=== PATIENT | male | born 1990 | race Caucasian/White ===

== ENCOUNTER 2019-08-30 12:17 | Outpatient (CLI) | payer OTHER, SELFPAY ==
--- NOTE | ~2019-08-30 | XR_ITS ---
EXAMINATION: XR knee LT 3V DATE: 08/30/2019 12:35 INDICATION: Left knee pain. TECHNIQUE: 3 views of left knee were obtained. COMPARISON: None. FINDINGS: Bone alignment is normal. No fracture. There is mild osteoarthritis of lateral and patellof emoral compartments. No knee joint effusion. IMPRESSION: 1. Mild left knee osteoarthritis. Reviewed, dictated and finalized at location A. D ARTILLERY CREWMEMBER
== END 2019-08-30 12:18 ==
PROVIDERS: PCP Family Medicine; Visit Provider Family Medicine
DX: M17.12 Unilateral primary osteoarthritis, left knee (principal)
CPT/HCPCS: 73562

== ENCOUNTER → 2021-10-30 08:27 | Outpatient (CLI) | payer OTHER, MEDICAID, SELFPAY ==
--- NOTE | ~2021-10-30 | US_ITS ---
EXAMINATION: US abdomen complete DATE: 10/30/2021 08:55 INDICATION: Abdominal distention TECHNIQUE: Multiple grayscale and Doppler ultrasound images of the abdomen were obtained. COMPARISON: None available FINDINGS: The head and body of the pancreas are normal. The pancreatic tail is obscured by bowel gas. The liver is normal with normal echogenicity and echotexture. No surface nodularity. Normal hepatope devin flow in the main portal vein. The gallbladder is normal with no abnormal wall thickening, pericho lecystic fluid or stones. The normal common bile duct measures 4 mm. There was no sonographic Mejia sign. The visualized portions of the aorta and inferior vena cava are normal. The right kidney measures 12.5 x 4.9 x 6 cm. The left kidney measures 11.7 x 5.6 x 4.8 cm. The kidney s demonstrate normal parenchymal echogenicity. There is no hydronephrosis. The spleen is normal in ap pearance and measures 12 cm. IMPRESSION: 1. No sonographic correlate for the patient's symptoms. Reviewed, dictated and finalized at location A.
== END ==
PROVIDERS: PCP Family Medicine; Visit Provider Family Medicine
DX: R14.0 Abdominal distension (gaseous) (principal)
CPT/HCPCS: 76700

== ENCOUNTER 2024-07-21 09:53 | Emergency (ER) | payer OTHER, SELFPAY ==
[2024-07-21 09:54] VITALS: BP 152/93; PULSE 72; RESP 18; TEMP 36.1; O2SAT 94
--- NOTE | 2024-07-21 10:08 | ED.DENTAL ---
HPI - Dental/Oral General Chief complaint: Dental/Oral Stated complaint: TOOTHACHE Time Seen by Provider: 07/21/24 10:08 History of Present Illness HPI Narrative: error Related Data Allergies Allergy/AdvReac Type Severity Reaction Status Date / Time No Known Allergies Allergy Verified 07/21/24 09:59 [facility] Past Medical History Medical History Erectile dysfunction BMI 38.0-38.9,adult Family History Family History Father Hypertension Family history of coronary artery disease Grandparent Acute myocardial infarction Other Family history of lung cancer Social History Social History Smoking status: Never smoker Alcohol intake: current Alcohol use details: special occasions, once a month maybe Substance use: never Substance use type: does not use Living arrangements: with family Occupation/Education: occupation Gender identity (if verbalized by the patient): Male Sexual Orientation (if Verbalized by the Patient): Straight or Heterosexual Course Vital Signs Vital signs: Vital Signs Temperature 36.1 C L 07/21/24 09:54 Pulse Rate 72 07/21/24 09:54 Respiratory Rate 18 07/21/24 09:54 Blood Pressure 152/93 H 07/21/24 09:54 Pulse Oximetry 94 07/21/24 09:54 Oxygen Delivery Room Air 07/21/24 09:54 Temperature 36.1 C L 07/21/24 09:54 Pulse Rate 72 07/21/24 09:54 Respiratory Rate 18 07/21/24 09:54 Blood Pressure 152/93 H 07/21/24 09:54 Pulse Oximetry 94 07/21/24 09:54 Oxygen Delivery Room Air 07/21/24 09:54 Discharge Plan Discharge Clinical Impression: Maxilla pain Patient Disposition: Home, Self-Care Condition: Stable Instructions: Toothache (ED) Additional Instructions: Please see a dentist as soon as possible. Stop amoxicillin. Start new clindamycin. Patient Language: Libyan Prescriptions: New clindamycin HCl 300 mg capsule 300 mg PO TID 10 Days Qty: 30 0RF tramadol 50 mg tablet 50 mg PO Q8H PRN (Reason: pain) Qty: 20 0RF Rx Instructions: 1-2 tabs per dose Follow-up/Referrals: UNKNOWN,DOCTOR [Primary Care Provider] - Time of Disposition: 10:19
--- NOTE | 2024-07-21 10:20 | ED.DENTAL ---
HPI - Dental/Oral General Chief complaint: Dental/Oral Stated complaint: TOOTHACHE Time Seen by Provider: 07/21/24 10:08 Source: patient Mode of arrival: ambulatory Limitations: no limitations History of Present Illness HPI Narrative: Patient is a 34-year-old male with a right upper jaw pain and poor dentition issues. He has a fractured tooth with decay. He is working on getting into a dentist as soon as possible. MD Complaint: tooth injury Location: Tooth # ( 3) Onset (ago): week(s) (1) Duration: constant Severity: moderate Severity scale (1-10): 8 Relieving factors: nothing Exacerbating factors: chewing, cold, heat and drinking fluids Context: trauma (mechanism) ( eating foods) Associated symptoms: gum swelling Treatment prior to arrival: other ( patient on amoxicillin) Related Data Allergies Allergy/AdvReac Type Severity Reaction Status Date / Time No Known Allergies Allergy Verified 07/21/24 09:59 Review of Systems Review of Systems: All systems reviewed & are unremarkable except as noted in HPI and below Constitutional: Constitutional: Reports no additional constitutional complaints Eyes: Eyes: Reports no additional eye complaints ENT: Reports system reviewed and no additional complaints, except as documented Cardiovascular: Cardiovascular: Reports no additional cardiovascular complaints Respiratory: Respiratory: Reports no additional respiratory complaints Gastrointestinal: Gastrointestinal: Reports no additional gastrointestinal complaints Genitourinary: Genitourinary: Reports no additional male genitourinary complaints Musculoskeletal: Musculoskeletal: Reports no additional musculoskeletal complaints Integumentary/Breasts: Skin/Breast: Reports system reviewed and no additional complaints, except as docu Neurologic: Reports system reviewed and no additional complaints, except as documented Psychiatric: Psychiatric: Reports no additional psychiatric complaints Endocrine: Endocrine: Reports no additional endocrine complaints Hematologic/Lymphatic: Hematologic/Lymphatic: Reports no additional hematologic/lymphatic complaints Allergic/Immunologic: Allergic/Immunologic: Reports no additional allergic/immunologic complaints COUNT INCLUDES [facility] Past Medical History Medical History Erectile dysfunction BMI 38.0-38.9,adult Family History Family History Father Hypertension Family history of coronary artery disease Grandparent Acute myocardial infarction Other Family history of lung cancer Social History Social History Smoking status: Never smoker Alcohol intake: current Alcohol use details: special occasions, once a month maybe Substance use: never Substance use type: does not use Living arrangements: with family Occupation/Education: occupation Gender identity (if verbalized by the patient): Male Sexual Orientation (if Verbalized by the Patient): Straight or Heterosexual Exam Const: General: healthy appearing Nutritional Appearance: well nourished Orientation/consciousness: patient oriented x3 HENMT: Head: normal to inspection Ears: external ears normal Face/Nose/Sinus: Normal external nose present Other: Tooth 3 has a black decay and 50% fracture down to the root with localized swelling of the right cheek without localized abscess Eyes: Conjunctivae: conjunctivae normal Pupils: Equal, round and reactive pupils present EOM: EOMs intact bilaterally Neck: Neck: normal visual inspection Chest: Chest palpation & inspection: normal inspection of the chest Resp: Effort & Inspection: normal respiratory effort and not labored Auscultation: clear to auscultation bilaterally and no crackles Cardio: Rate: regular rate Rhythm: regular rhythm Heart sounds: no murmurs GI: Inspection: non-distended GI Palp: Yes Soft to palpation and No Tenderness to palpation present (GI) Auscultation: normal bowel sounds : General: Yes bladder normal to palpation Back/Spine/Pelvis: Back: no CVA tenderness Skin: General skin exam: normal color Rashes: no rashes Wounds: no wounds Neuro: General: patient oriented x3 Cranial nerves: Yes Nystagmus not present Speech: normal speech Extrem: General: normal to inspection Psych: Mental Status: mental status grossly normal Affect: normal affect Attitude: cooperative Course Vital Signs Vital signs: Vital Signs Temperature 36.1 C L 07/21/24 09:54 Pulse Rate 72 07/21/24 09:54 Respiratory Rate 18 07/21/24 09:54 Blood Pressure 152/93 H 07/21/24 09:54 Pulse Oximetry 94 07/21/24 09:54 Oxygen Delivery Room Air 07/21/24 09:54 Temperature 36.1 C L 07/21/24 09:54 Pulse Rate 72 07/21/24 09:54 Respiratory Rate 18 07/21/24 09:54 Blood Pressure 152/93 H 07/21/24 09:54 Pulse Oximetry 94 07/21/24 09:54 Oxygen Delivery Room Air 07/21/24 09:54 MDM - Dental/Oral MDM Narrative Medical decision making narrative: patient is a 34-year-old male with a right face tooth 3 infection. We will changes amoxicillin to clindamycin and give him Ultram. He is to see a dentist as soon as possible. Discharge Plan Discharge Clinical Impression: Maxilla pain Patient Disposition: Home, Self-Care Condition: Stable Instructions: Toothache (ED) Additional Instructions: Please see a dentist as soon as possible. Stop amoxicillin. Start new clindamycin. Patient Language: Estonian Prescriptions: New clindamycin HCl 300 mg capsule 300 mg PO TID 10 Days Qty: 30 0RF tramadol 50 mg tablet 50 mg PO Q8H PRN (Reason: pain) Qty: 20 0RF Rx Instructions: 1-2 tabs per dose Follow-up/Referrals: UNKNOWN,DOCTOR [Primary Care Provider] - Time of Disposition: 10:19
[2024-07-21] MEDS: KETOROLAC (*BKC) 60 MG/2 ML VIAL IM (10:23)
== END 2024-07-21 10:42 | disposition home or self-care (01) ==
PROVIDERS: Emergency Provider Emergency Medicine
DX: R68.84 Jaw pain (principal)
CPT/HCPCS: 96372; 99283; J1885

== ENCOUNTER 2024-10-21 10:06 | Emergency (ER) | payer OTHER, SELFPAY ==
--- NOTE | ~2024-10-21 | XR_ITS ---
EXAMINATION: XR foot RT min 3V DATE: 10/21/2024 10:17 INDICATION: Gout presenting with pain through the medial right foot TECHNIQUE: Dorsoplantar, two oblique and lateral views of the right foot were obtained. COMPARISON: None. FINDINGS: Bone alignment is normal. No fracture. Mild polyarticular osteoarthritis at multiple joints in the ri t mid and forefoot. Moderate-sized Achilles and plantar calcaneal spurs. No erosions identified. Th ere is mild soft tissue swelling at the medial aspect of the midfoot. IMPRESSION: 1. Mild polyarticular osteoarthritis and moderate sized calcaneal enthesophytes. No erosions or acute osseous abnormality. Reviewed, dictated and finalized at location A. IMPRESSION: 1. Mild polyarticular osteoarthritis and moderate sized calcaneal enthesophytes . No erosions or acute osseous abnormality.
[2024-10-21 10:14] VITALS: BP 156/94; PULSE 87; RESP 16; TEMP 36.7; O2SAT 97
--- NOTE | 2024-10-21 10:17 | ED_ITS ---
HPI - Extremity Problem General Chief complaint: Extremity Problem,Nontraumatic Stated complaint: Foot Pain Time Seen by Provider: 10/21/24 10:07 Source: patient Mode of arrival: ambulatory Limitations: no limitations History of Present Illness HPI Narrative: patient is a 34-year-old male with a right foot pain overnight and this morning. He has a history of gout on the left foot. This appears to be the same pain and situation as prior gout. He was on allopurinol in the past. He has not seen a doctor in some time. MD Complaint: extremity pain, extremity swelling, joint swelling and joint paint Onset (ago): day(s) ( One) Pain Consistency: constant Location: right, lower extremity and other ( foot) Severity scale (1-10): 5 Quality: sharp Radiation: none Relieving factors: immobilization and elevation Exacerbating factors: range of motion, weight bearing, walking, exertion and palpation Associated symptoms: denies other symptoms Context: history of gout Related Data Allergies Allergy/AdvReac Type Severity Reaction Status Date / Time No Known Allergies Allergy Verified 10/03/24 07:37 Review of Systems Review of Systems: All systems reviewed & are unremarkable except as noted in HPI and below Constitutional: Constitutional: Reports no additional constitutional complaints Eyes: Eyes: Reports no additional eye complaints ENT: Reports system reviewed and no additional complaints, except as documented Cardiovascular: Cardiovascular: Reports no additional cardiovascular complaints Respiratory: Respiratory: Reports no additional respiratory complaints Gastrointestinal: Gastrointestinal: Reports no additional gastrointestinal complaints Genitourinary: Genitourinary: Reports no additional male genitourinary complaints Musculoskeletal: Musculoskeletal: Reports no additional musculoskeletal complaints Integumentary/Breasts: Skin/Breast: Reports system reviewed and no additional complaints, except as docu Neurologic: Reports system reviewed and no additional complaints, except as documented Psychiatric: Psychiatric: Reports no additional psychiatric complaints Endocrine: Endocrine: Reports no additional endocrine complaints Hematologic/Lymphatic: Hematologic/Lymphatic: Reports no additional hematologic/lymphatic complaints Allergic/Immunologic: Allergic/Immunologic: Reports no additional allergic/immunologic complaints [facility] Past Medical History Medical History Erectile dysfunction BMI 38.0-38.9,adult Family History Family History Father Hypertension Family history of coronary artery disease Grandparent Acute myocardial infarction Other Family history of lung cancer Social History Social History Smoking status: Never smoker Alcohol intake: current Alcohol use details: special occasions, once a month maybe Substance use: never Substance use type: does not use Living arrangements: with family Occupation/Education: occupation Gender identity (if verbalized by the patient): Male Sexual Orientation (if Verbalized by the Patient): Straight or Heterosexual Exam Const: General: healthy appearing Nutritional Appearance: well nourished Orientation/consciousness: patient oriented x3 HENMT: Head: normal to inspection Ears: external ears normal Face/Nose/Sinus: Normal external nose present Eyes: Conjunctivae: conjunctivae normal Pupils: Equal, round and reactive pupils present EOM: EOMs intact bilaterally Neck: Neck: normal visual inspection Chest: Chest palpation & inspection: normal inspection of the chest Resp: Effort & Inspection: normal respiratory effort and not labored Auscultation: clear to auscultation bilaterally and no crackles Cardio: Rate: regular rate Rhythm: regular rhythm Heart sounds: no murmurs GI: Inspection: non-distended GI Palp: Yes Soft to palpation and No Tenderness to palpation present (GI) Auscultation: normal bowel sounds : General: Yes bladder normal to palpation Back/Spine/Pelvis: Back: no CVA tenderness Skin: General skin exam: normal color Rashes: no rashes Wounds: no wounds Neuro: General: patient oriented x3 Cranial nerves: Yes Nystagmus not present Speech: normal speech Extrem: General: abnormal to inspection Other: right foot top is slightly red and more so swollen and tender to palpation midfoot; neurovascularly intact distally Psych: Mental Status: mental status grossly normal Affect: normal affect Attitude: cooperative Course Vital Signs Vital signs: Vital Signs Temperature 36.7 C 10/21/24 10:14 Pulse Rate 87 10/21/24 10:14 Respiratory Rate 16 10/21/24 10:14 Blood Pressure 156/94 H 10/21/24 10:14 Pulse Oximetry 97 10/21/24 10:14 Oxygen Delivery Room Air 10/21/24 10:14 Temperature 36.7 C 10/21/24 10:14 Pulse Rate 87 10/21/24 10:14 Respiratory Rate 16 10/21/24 10:14 Blood Pressure 156/94 H 10/21/24 10:14 Pulse Oximetry 97 10/21/24 10:14 Oxygen Delivery Room Air 10/21/24 10:14 MDM - Extremity (Nontraumatic) MDM Narrative Medical decision making narrative: patient is a 34-year-old male with right foot pain which is similar to prior gout in the left foot. We will start with an x-ray. Toradol. Imaging Data Attestation: I personally reviewed and interpreted this imaging study as follows: Radiologist's impression: X-ray right foot shows IMPRESSION: 1. Mild polyarticular osteoarthritis and moderate sized calcaneal enthesophytes. No erosions or acute osseous abnormality. Discharge Plan Discharge Clinical Impression: Gout attack Qualifiers: Gout site: foot Gout etiology: unspecified cause Laterality: right Qualified Code(s): M10.9 - Gout, unspecified Patient Disposition: Home, Self-Care Condition: Stable Instructions: Gout (ED) Patient Language: Yakut Prescriptions: New prednisone 20 mg tablet 40 mg PO DAILY 3 Days Qty: 6 0RF ibuprofen 800 mg tablet 800 mg PO TID PRN (Reason: pain) Qty: 30 0RF colchicine 0.6 mg tablet 1.2 mg PO ONCE Qty: 7 0RF Rx Instructions: then 0.6mg daily x5 days No Action tramadol 50 mg tablet 50 mg PO Q8H PRN (Reason: pain) Qty: 20 0RF Rx Instructions: 1-2 tabs per dose prednisone 10 mg tablet 30 mg PO DAILY Qty: 15 0RF allopurinol 100 mg tablet 100 mg PO DAILY Qty: 90 0RF Follow-up/Referrals: Prem Fry MD [Primary Care Provider] - Time of Disposition: 10:52
[2024-10-21] MEDS: KETOROLAC (*BKC) 60 MG/2 ML VIAL IM (10:26)
--- OUTSIDE RECORDS SUMMARY | 2024-10-21 10:30 | XMS_ITS | Referral Summary ---
Author Organization [facility] Building [address] Address [address] [place] [address] Care Team Providers Care Mastercam Programmer Name Role Phone No, Physician Primary Care Provider [phone] Allergies No known active allergies Medications HYDROcodone-acetam inophen (NORCO) 5-325 mg per tabletIndications: Pain 0 01/21/2018 Active Active Problems Problem Noted Date Diagnosed Date Furuncle of abdominal wall 09/21/2009 Social History Tobacco Use Types Packs/Day Years Used Date Smoking Tobacco: Never Smokeless Tobacco: Never Alcohol Use Standard Drinks/Week Comments No 0 (1 standard drink = 0.6 oz pur e alcohol) Personal Safety Answer Date Recorded Getting School Help Needed Not on file 10/01 Sex and Gender Information Value Date Recorded Sex Assigned at Not on file 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
--- OUTSIDE RECORDS SUMMARY | 2024-10-21 10:30 | XMS_ITS | Clinical Summary ---
Author Organization [facility] Medical Office Building [address] Address [address] [place] [address] Care Team Providers Care Front Clerk Name Role Phone No, Physician Primary Care Provider [phone] Allergies No known active allergies Medications HYDROcodone-acetam inophen (NORCO) 5-325 mg per tabletIndications: Pain 0 01/21/2018 Active Active Problems Problem Noted Date Diagnosed Date Furuncle of abdominal wall 09/21/2009 Family History Medical History Relation Name Comments No Known Problems Father No Known Problems Mother Relation Name Status Comments Father Mother Social History Tobacco Use Types Packs/Day Years Used Date Smoking Tobacco: Never Smokeless Tobacco: Never Alcohol Use Standard Drinks/Week Comments No 0 (1 standard drink = 0.6 oz pur e alcohol) Personal Safety Answer Date Recorded Getting School Help Needed Not on file 10/01 Sex and Gender Information Value Date Recorded Sex Assigned at Not on file 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
--- OUTSIDE RECORDS SUMMARY | 2024-10-21 10:30 | XMS_ITS | Clinical Summary ---
Author Organization [facility] Address [address] [place] [address] Phone Care Team Providers Care Robotic Machine Operator Name Role Phone Provider, None Primary Care Provider Unavailabl e Allergies No known active allergies Medications Allopurinol (ZYLOPRIM PO) Take by mouth. Active orphenadrine (NORFLEX) 100 MG TABLET SR 12 HR Take 1 Tablet by mouth 2 times daily as needed for Muscle spasms (lwft wrist pain). 14 Tablet 11/01/2021 Active HYDROcodone-millie taminophen (NORCO) 5-325 MG TabletIndicatio ns:Acute pain of left wrist,Fall, initial encounter Take 1 Tablet by mouth every 6 hours as needed for Moderate or more severe pain. 12 Tablet 11/01/2021 Active Immunizations Immunization Administration Dates Next Due TDAP Vaccine 03/07/2020 Social History Tobacco Use Types Packs/Day Years Used Date Smoking Tobacco: Never Smokeless Tobacco: Never Alcohol Use Standard Drinks/Week Comments No 0 (1 standard drink = 0.6 oz pur e alcohol) Sex and Gender Information Value Date Recorded Sex Assigned at Not on file Legal Sex Male 11:32 PM CDT Gender Identity Not on file Sexual Orientation Not on file Last Filed Vital Signs Vital Sign Reading Time Taken Comments Blood Pressure 139/78 11/01/2021 11:02 PM CDT Pulse 79 11/01/2021 11:02 PM CDT Temperature 36.9 C (98.4 F) 11/01/2021 8:47 PM CDT Respiratory Rate 17 11/01/2021 11:02 PM CDT Oxygen Saturation 99% 11/01/2021 11:02 PM CDT Inhaled Oxygen Concentration - - Weight 122.5 kg (270 lb) 11/01/2021 8:46 PM CDT Height 182.9 cm (6') 11/01/2021 8:46 PM CDT Body Mass Index 36.62 11/01/2021 8:46 PM CDT Plan of Treatment Health Maintenance Due Date Last Done Comments Hepatitis C Virus (HCV) Screening 1989 Influenza Immunization (#1) 2024 SARS-COV-2 Immunization ( season) 2024 Respiratory Syncytial Virus (RSV) Immunization (Adult) (1 - 1-dose 75+ series) 2064 Hepatitis B Immunization Completed 997, 11/18/1996, 07/05/1996 DTaP/Tdap/Td Immunization Discontinued 2019, 09/19/2005, 02/06/2004, Additional history exists Meningococcal Immunization (ACWY) Aged Out No longer eligible based on patient's age to complete this topic Pneumococcal Immunization Combined Aged Out No longer eligible based on patient's age to complete this topic Rotavirus Immunization Aged Out No lo nger eligible based on patient's age to complete this topic Insurance MEDICAID [place] Care Teams Robotic Machine Operator Relationship Specialty Start Date End Date Provider, None [place] PCP - General 1/18/17
--- OUTSIDE RECORDS SUMMARY | 2024-10-21 11:20 | XMS_ITS | Referral Summary ---
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
--- OUTSIDE RECORDS SUMMARY | 2024-10-21 11:20 | XMS_ITS | Clinical Summary ---
Author Organization 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
--- OUTSIDE RECORDS SUMMARY | 2024-10-21 11:20 | XMS_ITS | Clinical Summary ---
Author Organization [facility] Address [address] [place] [address] Phone Care Team Providers Care Residential Gas Heat Technician Name Role Phone Provider, None Primary Care [...] this topic Insurance [place]ICAID [place] Care Teams Residential Gas Heat Technician Relationship Specialty Start Date End Date Provider, None [place] PCP - General 1/18/17
== END 2024-10-21 11:04 | disposition home or self-care (01) ==
PROVIDERS: Emergency Provider Emergency Medicine; PCP Family Medicine
DX: M10.9 Gout, unspecified (principal)
CPT/HCPCS: 73630; 96372; 99283; J1885

== ENCOUNTER 2025-05-09 18:33 | Emergency (ER) | payer OTHER, MEDICAID, SELFPAY ==
[2025-05-09 18:40] VITALS: BP 155/92; PULSE 71; RESP 18; TEMP 36.6; O2SAT 100
[2025-05-09] MEDS: DACRIOSE EYE IRRIGATION 118 ML BOTTLE RIGHT EYE (18:46)
[2025-05-09] MEDS: FLUORESCEIN SOD 1 MG/STRIP RIGHT EYE (18:47)
[2025-05-09] MEDS: TETRACAINE HCL 0.5% OPHTH SOLN 4 ML BTL RIGHT EYE (18:47)
--- NOTE | 2025-05-09 19:17 | ED.GENADULT ---
HPI - General Adult General Chief complaint: Eye Problems Stated complaint: Right eye Source: patient Mode of arrival: ambulatory Limitations: no limitations History of Present Illness HPI narrative: Patient presents for evaluation of right eye irritation. Symptom onset this afternoon. He indicates he was working on a some framing and a piece of plastic from a nail gun hit him in the right side of the face just below the eye. He states he rubbed the area and shortly thereafter noted irritation of the eye. He has associated redness, sensation of foreign body in the eye, tearing, photophobia and blurred vision. He does not were glasses or contacts. He is not diabetic. He is up-to-date on tetanus. Denies any pain in the eye., Related Data Allergies Allergy/AdvReac Type Severity Reaction Status Date / Time No Known Allergies Allergy Verified 05/09/25 18:39 Review of Systems Review of Systems: CONSTITUTIONAL: Denies fever, chills, or sweats. EYES: Reports right eye irritation, redness, tearing, blurred vision, photophobia. Denies pain in the right eye and other visual disturbance. ENT: Denies rhinorrhea, congestion, sore throat, or otalgia. CARDIOVASCULAR: Denies chest pain, palpitations, or edema. RESPIRATORY: Denies cough or dyspnea. GASTROINTESTINAL: Denies abdominal pain, nausea, vomiting, or diarrhea. GENITOURINARY: Denies dysuria or hematuria. SKIN: Denies rash or itching. MUSCULOSKELETAL: Denies back pain, joint pain, or myalgia. NEUROLOGIC: Denies headache, numbness, dizziness, or weakness. PSYCHIATRIC: Denies anxiety or depression. [facility] Past Medical History Medical History Erectile dysfunction BMI 38.0-38.9,adult Surgical History Surgical History No pertinent past surgical history Family History Family History Father Hypertension Family history of coronary artery disease Grandparent Acute myocardial infarction Other Family history of lung cancer Social History Social History Smoking status: Never smoker Alcohol intake: current Alcohol use details: special occasions, once a month maybe Substance use: never Substance use type: does not use Living arrangements: with family Occupation/Education: occupation Gender identity (if verbalized by the patient): Male Sexual Orientation (if Verbalized by the Patient): Straight or Heterosexual Exam Narrative: GENERAL: Well-appearing, well-nourished, and in no acute distress. HEAD: Normocephalic, atraumatic. EYES: PERRLA and EOMI. Right eye is injected with tearing present. There are several areas of dye uptake noted at the 4 to 6 o'clock position when evaluated with fluorescein and Wood's lamp ENT: Nares clear, no rhinorrhea or epistaxis. Mucous membranes moist. Oropharynx without tonsillar hypertrophy exudate or other lesions. Bilateral TMs pearly yanes nonbulging NECK: Supple. No adenopathy or masses. No carotid bruits or JVD CHEST: Clear to auscultation. No respiratory distress. No wheezes rales or rhonchi HEART: Regular rate and rhythm. No murmur heard. Normal peripheral pulses. ABDOMEN: Soft, nontender, nondistended, normal active bowel sounds. EXTREMITIES: Normal range of motion. No edema. SKIN: Warm, dry, no rash. NEURO: No focal deficits. Alert and oriented x3. PSYCH: Normal mood and affect. Course Course Emergency Course: This is a 34-year-old male who presented for evaluation of right eye irritation. He has evidence of corneal abrasions without overt retained foreign body. Will dc with erythromycin. Follow up with primary care provider. Go to the ER for worsening symptoms. Pt in agreement with plan of care. Level of Care: Express Care Visit Vital Signs Vital signs: Vital Signs Temperature 36.6 C 05/09/25 18:40 Pulse Rate 71 05/09/25 18:40 Respiratory Rate 18 05/09/25 18:40 Blood Pressure 155/92 H 05/09/25 18:40 Pulse Oximetry 100 05/09/25 18:40 Oxygen Delivery Room Air 05/09/25 18:40 Temperature 36.6 C 05/09/25 18:40 Pulse Rate 71 05/09/25 18:40 Respiratory Rate 18 05/09/25 18:40 Blood Pressure 155/92 H 05/09/25 18:40 Pulse Oximetry 100 05/09/25 18:40 Oxygen Delivery Room Air 05/09/25 18:40 Medical Decision Making Vital Signs Vital Signs: Vital Signs Temperature 36.6 C 05/09/25 18:40 Pulse Rate 71 05/09/25 18:40 Respiratory Rate 18 05/09/25 18:40 Blood Pressure 155/92 H 05/09/25 18:40 Pulse Oximetry 100 05/09/25 18:40 Oxygen Delivery Room Air 05/09/25 18:40 Temperature 36.6 C 05/09/25 18:40 Pulse Rate 71 05/09/25 18:40 Respiratory Rate 18 05/09/25 18:40 Blood Pressure 155/92 H 05/09/25 18:40 Pulse Oximetry 100 05/09/25 18:40 Oxygen Delivery Room Air 05/09/25 18:40 Discharge Plan Discharge Clinical Impression: Abrasion of cornea, right Patient Disposition: Home Condition: Stable Instructions: Antibiotic Form, Corneal Abrasion (ED) Patient Language: Peruvian Prescriptions: New erythromycin 5 mg/gram (0.5 %) ointment 1 applic RIGHT EYE 6XD Qty: 3.5 0RF No Action allopurinol 100 mg tablet 100 mg PO DAILY Qty: 90 0RF Follow-up/Referrals: Prem Fry MD [Primary Care Provider, Family Practice] Time of Disposition: 19:16
--- OUTSIDE RECORDS SUMMARY | 2025-05-09 20:02 | XMS_ITS | Clinical Summary ---
Author Organization [facility] Address [address] [place] [address] Phone Care Team Providers Care Head Bone Grinder Name Role Phone Provider, None Primary Care [...] Comments Hepatitis C Virus (HCV) Screening 1989 Human Papillomavirus (HPV) Immunization (1 - 3-dose SCDM series) 2016 Influenza Immunization (#1) 2025 SARS-COV-2 Immunization ( season) 2025 Respiratory Syncytial Virus (RSV) Immunization (Adult) (1 [...] this topic Insurance MEDICAID [place] Care Teams Head Bone Grinder Relationship Specialty Start Date End Date Provider, None [place] PCP - General 08/06/16
--- OUTSIDE RECORDS SUMMARY | 2025-05-09 20:02 | XMS_ITS | Clinical Summary ---
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
== END 2025-05-09 19:18 | disposition home or self-care (01) ==
PROVIDERS: Emergency Provider Nurse Practitioner; PCP Family Medicine
DX: S05.01XA Injury of conjunctiva and corneal abrasion without foreign body, right eye, initial encounter (principal); W22.8XXA Striking against or struck by other objects, initial encounter
CPT/HCPCS: 99213; A9270; G0463